=== PATIENT | male | born 2000 | race Caucasian/White ===

== ENCOUNTER 2023-09-14 14:49 | Emergency (ER) | payer MEDICAID, SELFPAY ==
[2023-09-14] MEDS ORDERED: Boostrix 0.5 ML (Tdap) VIAL (>/=7 yrs of age) ONE (16:37)
[2023-09-14] MEDS ORDERED: Sodium Chloride 0.9% 1,000 ML ONE (16:37)
[2023-09-14] MEDS ORDERED: Ketorolac Tromethamine 30 MG (1 mL) VIAL ONE (16:37)
[2023-09-14 17:10] LABS: INR-International Normal Ratio 1.2; Prothrombin Time 15.3 sec (12.0-14.7)
[2023-09-14 17:11] LABS: PTT 37.2 sec (22.9-36.1)
[2023-09-14 17:18] LABS: Anion Gap 21 mmol/L (10-20); BUN (Urea Nitrogen) 11 mg/dL (8.9-20.6); Calc. Creatinine Clearance 0 mL/min (70-130); Calcium 9.4 mg/dL (7.8-10.44); Carbon Dioxide 19 mmol/L (22-29); Chloride 100 mmol/L (98-107); Estimated GFR 121; Glucose 73 mg/dL (70-105); Potassium 3.4 mmol/L (3.5-5.1); Sodium 137 mmol/L (136-145)
[2023-09-14 17:21] LABS: Band 3 % (5-11); Hematocrit 43.9 % (42.0-52.0); Hemoglobin 14.5 g/dL (14.0-18.0); Lymphocytes 5 % (21-51); MDiff Complete? YES; Mean Corpuscular Volume 93.9 fl (78.0-98.0); Mean Platelet Volume 7.6 fL (7.4-10.4); Monocytes 3 % (0-10); Neutrophil 86 % (42-75); Platelet Count 286 10x3/uL (130-400); RBC Distribution Width 11.6 % (11.5-14.5); Red Blood Cell (RBC) Count 4.68 mill/uL (4.70-6.10); White Blood Cell (WBC) Count 16.8 10x3/uL (4.8-10.8)
[2023-09-14 17:22] LABS: Manual Diff?? YES; Platelet Adequacy Comment Appears Adequate; RBC Morph Comment Within Normal Limits; Reactive Lymphocytes 3 % (0-10)
[2023-09-14] MEDS ORDERED: cefTRIAXone (ROCEPHIN) 1 GM VIAL ONE (19:55)
== END 2023-09-14 20:06 | disposition short-term general hospital (02) ==
LOC: MADERS 14:49
DX: S02.602A Fracture of unspecified part of body of left mandible, initial encounter for closed fracture (principal); F17.210 Nicotine dependence, cigarettes, uncomplicated; Z23 Encounter for immunization; Y04.8XXA Assault by other bodily force, initial encounter
CPT/HCPCS: 70486; 80048; 85025; 85610; 85730; 90471; 90715; 96374; 96375; J0696; J1885; J7050